=== PATIENT | female | born 1965 | race Caucasian/White ===

== ENCOUNTER 2018-03-17 14:00 | Observation (INO) ==
--- NOTE | 2018-03-17 14:25 | Emergency Department Note ---
Disposition Clinical Impression: Dizziness, Ataxia, Nausea Disposition: Admitted As Inpatient Condition: Fair Time of Disposition: 21:00 Nausea/Vomiting/Diarrhea HPI - General Chief complaint: ED Nausea/Vomiting/Diarrhea Stated complaint: "nausea,weak" Time Seen by Provider: 03/17/18 14:04 Source: patient Mode of arrival: ambulatory Limitations: no limitations Nursing Notes Reviewed: Yes Vital Signs Reviewed: Yes - History of Present Illness HPI Narrative: 52-year-old female presents to emergency department with complaints of lightheadedness and generalized weakness. She is also having some persistent dizziness that is unchanged with body position or head movement. The patient admits to smoking marijuana for years and quit about 2 weeks ago just prior to the onset of her symptoms. She denies any other illegal drug use. She denies nausea, blood loss. She does have some nausea and abdominal discomfort that she has a difficult time describing, she says it feels upset, like when she is hungry. She denies any sharp localized abdominal pain. She is having daily bowel movements and denies melena or bloody stools. She denies focal deficits, no weakness/paresthesias in extremities or elsewhere. - Related Data Home Medications Medication Instructions Recorded Confirmed Divalproex (24 HR) [Depakote ER 1,000 mg PO BID 03/17/18 03/17/18 (24 HR)] Escitalopram [Lexapro] 20 mg PO DAILY 03/17/18 03/17/18 lamoTRIgine [Lamictal] 100 mg PO BID 03/17/18 03/17/18 rOPINIRole [Requip] 3 mg PO HS 03/17/18 03/17/18 Allergies Allergy/AdvReac Type Severity Reaction Status Date / Time No Known Allergies Allergy Verified 02/03/18 14:41 Constitutional: Denies: fever, chills, weakness, weight change Eyes: Denies: eye pain, eye discharge, vision change ENT ED: Denies: ear pain, throat pain, dental pain, hearing loss, epistaxis, congestion, dysphagia Cardiovascular: Denies: chest pain, palpitations, dyspnea on exertion, edema Respiratory: Denies: cough, dyspnea, wheezes, hemoptysis, stridor Gastrointestinal: Reports: nausea. Denies: vomiting, diarrhea, constipation, hematemesis, melena, hematochezia Genitourinary: Denies: dysuria, frequency, hematuria, discharge Integumentary: Denies: rash, abrasion, lesions Neurological: Reports: headache, abnormal gait. Denies: numbness, paresthesias , confusion Endocrine: Denies: heat or cold intolerance, polydipsia, polyuria Past Medical History - Past Medical History Medical history: Reports: arthritis, seizures Psychiatric history: Reports: depression - Social History Smoking Status: Current every day smoker Smokeless Tobacco Status: No Alcohol use: Reports: none Drug use: Reports: none Physical Exam - General Limitations: no limitations General appearance: alert, in no apparent distress - Head Head exam: atraumatic, normocephalic, normal inspection - Eye Eye exam: Present: normal appearance, PERRL, EOMI - ENT ENT exam: normal exam, normal oropharynx, mucous membranes moist - Neck Neck exam: Present: normal inspection, full ROM, trachea midline - Chest Chest inspection: Present: normal inspection, symmetric chest wall rise - Respiratory Respiratory exam: Present: normal lung sounds bilaterally - Cardiovascular Cardiovascular exam: Present: regular rate, normal rhythm, normal heart sounds - Abdominal Exam Abdominal exam: Present: soft, tenderness (mild tenderness to palpation LUQ), normal bowel sounds. Absent: distention, guarding, rebound, rigidity - Extremities Exam Extremities exam: Present: normal inspection, full ROM. Absent: tenderness, pedal edema - Neurological Exam Neurological exam: Present: alert, oriented X3 Course Course Narrative: Patient seen and examined at bedside as she is in no acute distress. - Reevaluation(s) Reevaluation #1: Patient reevaluated following administration of meclizine, Zofran, Ativan and her dizziness is unchanged. She is stable and in no acute distress Time: 15:24 Vital Signs Temperature 98.1 F 03/17/18 14:01 Pulse Rate 100 03/17/18 14:01 Respiratory Rate 18 03/17/18 14:01 Blood Pressure 133/82 03/17/18 14:01 O2 Sat by Pulse Oximetry 97 03/17/18 14:01 Temperature 98.0 F 03/17/18 21:13 Pulse Rate 61 03/17/18 21:13 Respiratory Rate 16 03/17/18 21:13 Blood Pressure 115/79 03/17/18 21:13 O2 Sat by Pulse Oximetry 97 03/17/18 21:13 Oxygen Delivery Oxygen Delivery Room Air Nausea/Vomiting/Diarrhea - MDM Narrative Medical decision making narrative: Discussed case with attending physician. Unusual story with no definite underlying cause for her persistent dizziness and nausea. We will get a CT scan of her head and also check CBC for possible anemia and other hematologic abnormalities, CMP, urinalysis. Will also check urine drug screen for other controlled substances . Urinalysis came back with leukocyte esterase and nitrites as well as moderate blood. Patient denies any recent symptoms of UTI including urgency, frequency, hematuria, dysuria, flank pain, fever/chills. . Consults with neurology Dr. Maki, who says we could consider CTA head to check patient's posterior circulation. He thinks this is possibly related to her recent cessation of marijuana. We will get the CTA. Also discussed case with painter helper Dr. Bajwa who thinks sx less likely explained by marijuana alone . CTA head and neck normal. Discussed case with attending ER physician and we feel that given her persistent ataxia and dizziness with no clear etiology, she would benefit from observation and further evaluation in the hospital. Discussed case with Dr. Garay who will accept the patient - Lab Data Lab results reviewed: Yes I reviewed the patient's lab results. Result diagrams: 03/17/18 14:42 03/17/18 14:42 Lab Results 03/17/18 03/17/18 03/17/18 Range/Units 14:42 14:42 14:57 WBC 6.2 (4.3-11.1) K/mcL RBC 4.07 (3.82-4.97) M/mcL Hgb 13.5 (11.5-15.4) g/dL Hct 39.3 (35.3-44.9) % MCV 96.6 (83.0-100.0) fL MCH 33.2 (28.0-33.3) pg MCHC 34.4 (31.6-35.5) g/dL RDW 14.6 H (11.5-14.5) % Plt Count 183 (140-400) K/mcL MPV 11.0 (9.4-12.4) fL Immature Gran % 0.2 (0-4) % Seg Neutrophils % 47.1 % Lymphocytes % 41.0 % Monocytes % 10.7 % Eosinophils % 0.3 % Basophils % 0.7 % Neutrophils # 2.9 (1.6-8.9) K/mcL Lymphocytes # 2.5 (0.6-4.6) K/mcL Monocytes # 0.7 (0.0-1.3) K/mcL Eosinophils # 0.0 (0.0-0.6) K/mcL Basophils # 0.0 (0.0-0.2) K/mcL Sodium 137 (136-145) mEq/L Potassium 4.2 (3.5-5.1) mEq/L Chloride 105 (98-107) mEq/L Carbon Dioxide 25 (23-29) mEq/L BUN 15 (6-20) mg/dL Creatinine 0.87 (0.60-1.20) mg/dL Est GFR ( Amer) > 60 (> 60) Est GFR (Non-Af Amer) > 60 (> 60) BUN/Creatinine Ratio 17 (6-26) Glucose 89 (70-105) mg/dL Calculated Osmolality 284 (280-300) Calcium 9.1 (8.6-10.3) mg/dL Total Bilirubin 0.3 (0.3-1.0) mg/dL AST 15 (13-39) Units/L ALT 10 (7-52) Units/L Alkaline Phosphatase 55 (34-104) Units/L Serum Total Protein 6.4 (6.4-8.9) g/dL Albumin 3.8 (3.5-5.7) g/dL Globulin 2.6 (2.4-3.5) g/dL Albumin/Globulin Ratio 1.5 (1.1-2.2) Urine Color (Yellow) Urine Clarity (Clear) Urine pH (5.0-8.0) pH Units Ur Specific Baker (1.010-1.025) Urine Protein (Neg-Trace) mg/dL Urine Glucose (UA) (Normal) mg/dL Urine Ketones (Negative) mg/dL Urine Blood (Negative) Urine Nitrite (Negative) Urine Bilirubin (Negative) Urine Urobilinogen (Normal) mg/dL Ur Leukocyte Esterase (Negative) Urine Opiates Screen Negative (Hyoqhq=377) ng/mL Ur Barbiturates Screen Negative (Mmjlga=200) ng/mL Ur Phencyclidine Scrn Negative (Cutoff=25) ng/mL Ur Amphetamines Screen Negative (Hocddx=3630) ng/mL U Benzodiazepines Scrn Negative (Ejxqgu=185) ng/mL Urine Cocaine Screen Negative (Cutoff= 300) ng/mL U Marijuana (THC) Screen Positive H (Cutoff = 50) ng/mL 03/17/18 Range/Units 14:57 WBC (4.3-11.1) K/mcL RBC (3.82-4.97) M/mcL Hgb (11.5-15.4) g/dL Hct (35.3-44.9) % MCV (83.0-100.0) fL MCH (28.0-33.3) pg MCHC (31.6-35.5) g/dL RDW (11.5-14.5) % Plt Count (140-400) K/mcL MPV (9.4-12.4) fL Immature Gran % (0-4) % Seg Neutrophils % % Lymphocytes % % Monocytes % % Eosinophils % % Basophils % % Neutrophils # (1.6-8.9) K/mcL Lymphocytes # (0.6-4.6) K/mcL Monocytes # (0.0-1.3) K/mcL Eosinophils # (0.0-0.6) K/mcL Basophils # (0.0-0.2) K/mcL Sodium (136-145) mEq/L Potassium (3.5-5.1) mEq/L Chloride (98-107) mEq/L Carbon Dioxide (23-29) mEq/L BUN (6-20) mg/dL Creatinine (0.60-1.20) mg/dL Est GFR ( Amer) (> 60) Est GFR (Non-Af Amer) (> 60) BUN/Creatinine Ratio (6-26) Glucose (70-105) mg/dL Calculated Osmolality (280-300) Calcium (8.6-10.3) mg/dL Total Bilirubin (0.3-1.0) mg/dL AST (13-39) Units/L ALT (7-52) Units/L Alkaline Phosphatase (34-104) Units/L Serum Total Protein (6.4-8.9) g/dL Albumin (3.5-5.7) g/dL Globulin (2.4-3.5) g/dL Albumin/Globulin Ratio (1.1-2.2) Urine Color Yellow (Yellow) Urine Clarity Cloudy A (Clear) Urine pH 6.0 (5.0-8.0) pH Units Ur Specific Baker 1.019 (1.010-1.025) Urine Protein Negative (Neg-Trace) mg/dL Urine Glucose (UA) Normal (Normal) mg/dL Urine Ketones 40 H (Negative) mg/dL Urine Blood Moderate H (Negative) Urine Nitrite Positive A (Negative) Urine Bilirubin Negative (Negative) Urine Urobilinogen Normal (Normal) mg/dL Ur Leukocyte Esterase Trace H (Negative) Urine Opiates Screen (Okktir=934) ng/mL Ur Barbiturates Screen (Sunaqb=509) ng/mL Ur Phencyclidine Scrn (Cutoff=25) ng/mL Ur Amphetamines Screen (Kljuuf=4988) ng/mL U Benzodiazepines Scrn (Sgjmfy=883) ng/mL Urine Cocaine Screen (Cutoff= 300) ng/mL U Marijuana (THC) Screen (Cutoff = 50) ng/mL - EKG Data EKG attestation: Yes I reviewed and interpreted this EKG. EKG results narrative: EKG reviewed: Normal sinus rhythm, rate 65 bpm, MT interval 142, QRS duration 90 ms, QT 405 ms, QTC 417 ms, normal axes, no ST elevation or depression Attestation Statement - Attestation Attestation: I, Mahad Caraballo DO, examined this patient [id number] and my medical decision-making was reviewed with Jad Hernandez PGY-3, Resident Physician. I agree with the documented findings, disposition and treatment plan as described except to the extent set forth below. Please see my progress notes for details.
[2018-03-17] MEDS ORDERED: 0.9 % Sodium Chloride 1,000 ML IVC ONE ×2 (14:37→17:07)
[2018-03-17 15:06] LABS: Basophils % 0.7 %; Eosinophils % 0.3 %; Hematocrit 39.3 % (35.3-44.9); Hemoglobin 13.5 g/dL (11.5-15.4); Immature Granulocytes % 0.2 % (0-4); Lymphocytes # 2.5 K/mcL (0.6-4.6); Mean Corpuscular HGB Conc 34.4 g/dL (31.6-35.5); Mean Corpuscular Hemoglobin 33.2 pg (28.0-33.3); Mean Corpuscular Volume 96.6 fL (83.0-100.0); Monocytes # 0.7 K/mcL (0.0-1.3); Monocytes % 10.7 %; Neutrophils # 2.9 K/mcL (1.6-8.9); Platelet Count 183 K/mcL (140-400); Red Blood Count 4.07 M/mcL (3.82-4.97); Red Cell Distribution Width 14.6 % (11.5-14.5); Segmented Neutrophils % 47.1 %
[2018-03-17 15:16] LABS: Bilirubin,Urine Negative (Negative); Blood,Urine Moderate (Negative); Clarity,Urine Cloudy (Clear); Color,Urine Yellow (Yellow); Glucose,Urine (UA) Normal (Normal); Ketones,Urine 40 mg/dL (Negative); Leukocyte Esterase,Urine Trace (Negative); Nitrite,Urine Positive (Negative); Protein,Urine Negative (Neg-Trace); Specific Gravity,Urine 1.019 (1.010-1.025); Urobilinogen,Urine Normal (Normal)
[2018-03-17 15:16] LABS: Alanine Aminotransferase 10 Units/L (7-52); Albumin 3.8 g/dL (3.5-5.7); Albumin/Globulin Ratio 1.5 (1.1-2.2); Alkaline Phosphatase 55 Units/L (34-104); Aspartate Amino Transferase 15 Units/L (13-39); BUN/Creatinine Ratio 17 (6-26); Bilirubin,Total 0.3 mg/dL (0.3-1.0); Blood Urea Nitrogen 15 mg/dL (6-20); Calcium 9.1 mg/dL (8.6-10.3); Carbon Dioxide 25 mEq/L (23-29); Chloride 105 mEq/L (98-107); Globulin 2.6 g/dL (2.4-3.5); Glucose 89 mg/dL (70-105); Osmolality,Calculated 284 (280-300); Potassium 4.2 mEq/L (3.5-5.1); Sodium 137 mEq/L (136-145); Total Protein 6.4 g/dL (6.4-8.9); eGFR For African Americans > 60 (> 60); eGFR For Non-African Americans > 60 (> 60)
[2018-03-17 15:34] LABS: Amphetamine Screen,Urine Negative ng/mL (Cutoff=1000); Barbiturate Screen,Urine Negative ng/mL (Cutoff=200); Benzodiazepines Screen,Urine Negative ng/mL (Cutoff=200); Cannabinoid Screen,Urine Positive ng/mL (Cutoff = 50); Cocaine Screen,Urine Negative ng/mL (Cutoff= 300); Opiate Screen,Urine Negative ng/mL (Cutoff=300); Phencyclidine Screen,Urine Negative ng/mL (Cutoff=25)
[2018-03-17] MEDS ORDERED: Ondansetron 4 MG/2 ML VIAL IVP ONE ×2 (15:35→17:07)
--- NOTE | 2018-03-17 16:46 | Emergency Department Note ---
Disposition Clinical Impression: Dizziness, Ataxia, Nausea Disposition: Admitted As Inpatient Condition: Fair Referrals: Emile Long MD [Primary Care Provider] - Time of Disposition: 19:41 General Adult HPI - General Chief complaint: ED Nausea/Vomiting/Diarrhea Stated complaint: "nausea,weak" Time Seen by Provider: 03/17/18 14:04 Source: patient Mode of arrival: ambulatory Limitations: no limitations - History of Present Illness Pain Scale: 0 - Related Data Allergies Allergy/AdvReac Type Severity Reaction Status Date / Time No Known Allergies Allergy Verified 02/03/18 14:41 Past Medical History - Past Medical History Medical history: Reports: arthritis, seizures Psychiatric history: Reports: depression - Social History Smoking Status: Current every day smoker Smokeless Tobacco Status: No Alcohol use: Reports: none Drug use: Reports: none Physical Exam - General Limitations: no limitations General appearance: alert, in no apparent distress Course Vital Signs Temperature 98.1 F 03/17/18 14:01 Pulse Rate 100 03/17/18 14:01 Respiratory Rate 18 03/17/18 14:01 Blood Pressure 133/82 03/17/18 14:01 O2 Sat by Pulse Oximetry 97 03/17/18 14:01 Temperature 98.1 F 03/17/18 14:20 Pulse Rate 62 03/17/18 16:05 Respiratory Rate 11 03/17/18 18:38 Blood Pressure 129/80 03/17/18 18:38 O2 Sat by Pulse Oximetry 100 03/17/18 18:38 Oxygen Delivery Oxygen Delivery Room Air Medical Decision Making - Lab Data Result diagrams: 03/17/18 14:42 03/17/18 14:42 Lab Results 03/17/18 03/17/18 03/17/18 Range/Units 14:42 14:42 14:57 WBC 6.2 (4.3-11.1) K/mcL RBC 4.07 (3.82-4.97) M/mcL Hgb 13.5 (11.5-15.4) g/dL Hct 39.3 (35.3-44.9) % MCV 96.6 (83.0-100.0) fL MCH 33.2 (28.0-33.3) pg MCHC 34.4 (31.6-35.5) g/dL RDW 14.6 H (11.5-14.5) % Plt Count 183 (140-400) K/mcL MPV 11.0 (9.4-12.4) fL Immature Gran % 0.2 (0-4) % Seg Neutrophils % 47.1 % Lymphocytes % 41.0 % Monocytes % 10.7 % Eosinophils % 0.3 % Basophils % 0.7 % Neutrophils # 2.9 (1.6-8.9) K/mcL Lymphocytes # 2.5 (0.6-4.6) K/mcL Monocytes # 0.7 (0.0-1.3) K/mcL Eosinophils # 0.0 (0.0-0.6) K/mcL Basophils # 0.0 (0.0-0.2) K/mcL Sodium 137 (136-145) mEq/L Potassium 4.2 (3.5-5.1) mEq/L Chloride 105 (98-107) mEq/L Carbon Dioxide 25 (23-29) mEq/L BUN 15 (6-20) mg/dL Creatinine 0.87 (0.60-1.20) mg/dL Est GFR ( Amer) > 60 (> 60) Est GFR (Non-Af Amer) > 60 (> 60) BUN/Creatinine Ratio 17 (6-26) Glucose 89 (70-105) mg/dL Calculated Osmolality 284 (280-300) Calcium 9.1 (8.6-10.3) mg/dL Total Bilirubin 0.3 (0.3-1.0) mg/dL AST 15 (13-39) Units/L ALT 10 (7-52) Units/L Alkaline Phosphatase 55 (34-104) Units/L Serum Total Protein 6.4 (6.4-8.9) g/dL Albumin 3.8 (3.5-5.7) g/dL Globulin 2.6 (2.4-3.5) g/dL Albumin/Globulin Ratio 1.5 (1.1-2.2) Urine Color (Yellow) Urine Clarity (Clear) Urine pH (5.0-8.0) pH Units Ur Specific Wanda (1.010-1.025) Urine Protein (Neg-Trace) mg/dL Urine Glucose (UA) (Normal) mg/dL Urine Ketones (Negative) mg/dL Urine Blood (Negative) Urine Nitrite (Negative) Urine Bilirubin (Negative) Urine Urobilinogen (Normal) mg/dL Ur Leukocyte Esterase (Negative) Urine Opiates Screen Negative (Muhxss=664) ng/mL Ur Barbiturates Screen Negative (Xokqzk=841) ng/mL Ur Phencyclidine Scrn Negative (Cutoff=25) ng/mL Ur Amphetamines Screen Negative (Rbguem=9144) ng/mL U Benzodiazepines Scrn Negative (Fmbsfo=410) ng/mL Urine Cocaine Screen Negative (Cutoff= 300) ng/mL U Marijuana (THC) Screen Positive H (Cutoff = 50) ng/mL 03/17/18 Range/Units 14:57 WBC (4.3-11.1) K/mcL RBC (3.82-4.97) M/mcL Hgb (11.5-15.4) g/dL Hct (35.3-44.9) % MCV (83.0-100.0) fL MCH (28.0-33.3) pg MCHC (31.6-35.5) g/dL RDW (11.5-14.5) % Plt Count (140-400) K/mcL MPV (9.4-12.4) fL Immature Gran % (0-4) % Seg Neutrophils % % Lymphocytes % % Monocytes % % Eosinophils % % Basophils % % Neutrophils # (1.6-8.9) K/mcL Lymphocytes # (0.6-4.6) K/mcL Monocytes # (0.0-1.3) K/mcL Eosinophils # (0.0-0.6) K/mcL Basophils # (0.0-0.2) K/mcL Sodium (136-145) mEq/L Potassium (3.5-5.1) mEq/L Chloride (98-107) mEq/L Carbon Dioxide (23-29) mEq/L BUN (6-20) mg/dL Creatinine (0.60-1.20) mg/dL Est GFR ( Amer) (> 60) Est GFR (Non-Af Amer) (> 60) BUN/Creatinine Ratio (6-26) Glucose (70-105) mg/dL Calculated Osmolality (280-300) Calcium (8.6-10.3) mg/dL Total Bilirubin (0.3-1.0) mg/dL AST (13-39) Units/L ALT (7-52) Units/L Alkaline Phosphatase (34-104) Units/L Serum Total Protein (6.4-8.9) g/dL Albumin (3.5-5.7) g/dL Globulin (2.4-3.5) g/dL Albumin/Globulin Ratio (1.1-2.2) Urine Color Yellow (Yellow) Urine Clarity Cloudy A (Clear) Urine pH 6.0 (5.0-8.0) pH Units Ur Specific Wanda 1.019 (1.010-1.025) Urine Protein Negative (Neg-Trace) mg/dL Urine Glucose (UA) Normal (Normal) mg/dL Urine Ketones 40 H (Negative) mg/dL Urine Blood Moderate H (Negative) Urine Nitrite Positive A (Negative) Urine Bilirubin Negative (Negative) Urine Urobilinogen Normal (Normal) mg/dL Ur Leukocyte Esterase Trace H (Negative) Urine Opiates Screen (Gdsmth=687) ng/mL Ur Barbiturates Screen (Wshkxb=539) ng/mL Ur Phencyclidine Scrn (Cutoff=25) ng/mL Ur Amphetamines Screen (Mecivc=9539) ng/mL U Benzodiazepines Scrn (Ornhtg=904) ng/mL Urine Cocaine Screen (Cutoff= 300) ng/mL U Marijuana (THC) Screen (Cutoff = 50) ng/mL Attestation Statement - Attestation Attestation: I, Mahad Caraballo DO, examined this patient [id number] and my medical decision-making was reviewed with Jad Hernandez PGY-3, Resident Physician. I agree with the documented findings, disposition and treatment plan as described except to the extent set forth below. Please see my progress notes for details. 52-year-old female presents to the emergency room for evaluation of dizziness with nausea and vomiting. Patient said the symptoms now for the last 2 weeks. He notices symptoms after she stopped smoking marijuana every day. Patient denies any trauma or injuries fevers chills chest pain shortness of breath headache or vision change. Denies any vomiting or diarrhea. Patient does have persistent nausea. Currently denies any new medications or other medical issues at this time. Vital signs are reviewed and are stable. Patient is alert she is oriented she speaks in full sentences. Patient does not have any acute signs trauma or injury to the scalp or skull. She has no signs of visualize nystagmus or extraocular muscle deficit. Pupils are equal round reactive oropharynx is patent trachea is midline mucous members are moist heart is regular lungs are clear abdomen is soft. Resting in the bed the patient does not have any visible ataxia or asymmetry evaluation of the extremities. She has normal sensation in the upper and lower extremities at this time. Detailed neurologic evaluation to be completed. CT imaging of the head chest x- ray CBC chemistry troponin EKG and labs including electrolytes urinalysis and urine drug screen will be added. Fluid resuscitation will be started. Meclizine will be given for the dizziness as well as nausea medication this time. Disposition will be determined to full workup treatment course and evaluation are established and resulted. Patient's physical exam is otherwise showing no significant acute pathology this point outside of the patient's difficulty with walking secondary to the dizziness. Patient's symptoms have been present for greater than 24 hours and do not meet criteria for stroke evaluation this point. Patient's symptoms do appear to have a positional aspect to them considering a retention moves from lying to sitting and sitting to standing she gets acutely dizzy. She also has issues with feeling like the room is spinning when she stands up and walks. No history of vertigo, labyrinthitis, Meniere's disease. She has no tenderness or signs of external auditory canal obstruction or infection. Patient is otherwise clinically stable this point despite having symptomatic presentation with dizziness. See detailed documentation of physical exam, medical intervention, medical decision- making and disposition in the resident physician's note. No critical care pad the patient's treatment course at this time. 1600 Repeat evaluation completed at the bedside. Patient still has positional dizziness. Patient felt very unsteady when walking. She does not have any central signs of vertigo at this point. She has fatigable nystagmus that is worse going to the right and left. She does not have any focal cerebellar function deficits or issues when doing an evaluation of her upper and lower extremities. She has resolution of the symptoms when she closes her eyes and takes out the aspect of visual acuity. Patient does have bilateral blurry vision. There is no double vision or diplopia noted on exam according to her. 1750 Neurology was consult. Lengthy discussion was had with him at this time. They felt this does not appear to be consistent or concerning for stroke. The symptoms are more consistent with BPPV. Patient will have CT angiography of the head neck completed for definitive rule out and the most likely be discharged home. The dizziness is now resolving after the Ativan was given. Patient most likely has some aspect of the vestibular related irritation at this time. 1935 Patient has had no significant change in the symptoms here at this time. CT angiography of the head and neck are unremarkable. Because the patient has persistent symptoms with unknown etiology admission process will be completed for MRIs and further evaluation. Patient is otherwise clinically stable and has not had any issues with emesis here in the emergency room.
[2018-03-17] MEDS ORDERED: Isovue-370 500 ML INFUS..BTL IV ONE ×2 (17:15→17:28)
[2018-03-17] MEDS ORDERED: *HR* LORazepam 2 MG/ML VIAL IVP ONE (17:22)
[2018-03-18] MEDS ORDERED: Naloxone 0.4 MG/ML INJ IVP PRN (00:18)
[2018-03-18] MEDS ORDERED: Acetaminophen 325 MG TABLET PO PRN (00:18)
[2018-03-18] MEDS ORDERED: 0.9 % Sodium Chloride 1,000 ML IVC SCH (00:30)
[2018-03-18] MEDS: Divalproex (24 HR) 500 MG TABLET PO SCH ×2 (00:57→08:18)
[2018-03-18] MEDS: cefTRIAXone 1,000 MG in Water for inj. (sterile) 20 ML 10 ML IVP SCH ×2 (00:58→08:18)
[2018-03-18] MEDS: lamoTRIgine 100 MG TABLET PO SCH ×2 (00:58→08:18)
--- NOTE | 2018-03-18 02:18 | Internal Med History&Physical ---
Date of Encounter: 03/18/18 Time of Encounter: 00:10 Internal Medicine - H&P: HPI Chief complaint: dizzy spells, ataxia Admitted From: Emergency Dept Plans for Post Hospital Care: Home History of present illness: Ms. Michael is a 52 year old female [facility] complaints of dizziness, ataxia, and near-syncope. Symptoms started several days ago but progressively worsened to the point where she almost had a syncopal spell today. She therefore went to the ER where she initially had work -up for possible stroke. Workup was negative but consultation was made with neurology who recommended CTA of the head and neck and admission for close observation and workup. Of note, patient recently stopped using marijuana abruptly. She had been using it chronically for years and then stopped abruptly a few weeks ago. Neurology felt that symptoms were likely due to abrupt cessation/withdrawal from marijuana, but that neurologic workup was indicated. Upon my assessment of the patient, she feels back to baseline but she does complain of dizziness and ataxia when standing and moving. She denies any other focal deficits. She has had some nausea but no vomiting or diarrhea. She denies any dysarthria, choking, gagging, focal numbness or weakness, or vision changes. However, upon standing and trying to walk, she is unsteady, ataxic, and bracing herself. Past Med Surg Social Fam HX - Past Medical History Attestation: Yes The following information was validated with the patient. Source: patient, old records reviewed Medical history: arthritis, seizures Additional medical history: RLS, depression Psychiatric history: depression - Past Surgical History Surgical History: orthopedic, other Additional surgical history: knee - Social History Smoking Status: Current every day smoker Packs per day: 1 Smokeless Tobacco Status: No Alcohol use: none Drug use: marijuana (recently stopped abruptly) Current living situation: Home Activity Level: Independent ambulation Recent Out of Country Travel Within the Last 8 Weeks: No - Family History Mother Hx Family Cancer: Yes (breast cancer) Internal Medicine - H&P: Meds Divalproex (24 HR) [Depakote ER (24 HR)] 1,000 mg PO BID 03/17/18 [History] Escitalopram [Lexapro] 20 mg PO DAILY 03/17/18 [History] lamoTRIgine [Lamictal] 100 mg PO BID 03/17/18 [History] rOPINIRole [Requip] 3 mg PO HS 03/17/18 [History] 3 Allergy/AdvReac Type Severity Reaction Status Date / Time No Known Allergies Allergy Verified 02/03/18 14:41 - Constitutional Constitutional: no chills, no fever(s), no night sweats - EENT Eyes: no blurry vision, no change in vision Ears: no ear pain, no tinnitus Nose, mouth and throat: no nasal congestion, no sore throat - Cardiovascular Cardiovascular ROS IM: other (+near syncope), no chest pain, no diaphoresis, no dyspnea, no lightheadedness, no palpitations, no paroxysmal nocturnal dyspnea, no syncope - Respiratory Respiratory: no cough, no dyspnea, no hemoptysis - Gastrointestinal Gastrointestinal: nausea, no abdominal pain, no diarrhea, no hematemesis, no hematochezia, no melena, no vomiting - Genitourinary Genitourinary: no dysuria, no flank pain, no hematuria - Musculoskeletal Musculoskeletal ROS IM: no arthralgias, no back pain - Integumentary Integumentary IM: no rash, no jaundice - Neurological Neurological ROS: abnormal gait, dizziness, restless legs, no focal weakness, no frequent falls, no headache(s) - Psychiatric Psychiatric: no anxiety, no depression - Endocrine Endocrine IM: no polydipsia, no polyuria - Allergic/Immunologic Allergic/Immunologic: no wheezing, no GI upset with certain foods - Constitutional Vitals: Temp Pulse Resp BP Pulse Ox 97.7 F 70 13 132/81 95 03/17/18 23:56 03/17/18 23:56 03/17/18 23:56 03/17/18 23:56 03/17/18 23:56 General appearance: Present: cooperative, A&O X 3, pleasant, no acute distress, answers questions appropriately - Head Head exam: Present: atraumatic, normal inspection - Eye Eye exam: Present: EOMI, normal appearance, PERRL. Absent: scleral icterus Pupils: Present: normal accommodation - ENT ENT exam: Present: mucous membranes dry, normal exam, normal oropharynx - Neck Neck exam general surgery: Present: full ROM, supple. Absent: tenderness, nuchal rigidity, thyromegaly - Expanded Neck Exam Neck exam: Absent: carotid bruit - Respiratory Respiratory exam: Present: CTAB. Absent: chest wall tenderness, rales, respiratory distress, rhonchi, wheezes - Cardiovascular Cardiovascular exam: Present: RRR, +S1, +S2. Absent: diastolic murmur, systolic murmur - GI/Abdominal GI/Abdominal exam: Present: normal bowel sounds, soft. Absent: hepatomegaly, mass, splenomegaly, tenderness - Extremities Exam Extremities exam: Present: full ROM, warm, radial pulses palpable and symmetrical. Absent: calf tenderness, pedal edema - Back Exam Back exam: Present: normal inspection. Absent: CVA tenderness (L), CVA tenderness (R) - Neurological Exam Neurological exam: Present: abnormal gait (ataxic), alert, CN II-XII intact, oriented X3, reflexes normal, no focal deficits, strengths equal and symetr throughout - Psychiatric Psychiatric exam: Present: normal affect, normal mood - Skin Skin exam: Present: dry, warm. Absent: rash Internal Med - H&P Results - Labs CBC & Chem 7: 03/17/18 14:42 03/17/18 14:42 - EKG Data -: EKG Interpreted by Myself EKG shows normal: sinus rhythm - EKG Data Prior EKG available for review: no EKG comments: 03/18/18 02:27 NSR; no acute changes - Diagnostic Studies Chest x-ray Status: image reviewed by me (negative) CT scan - head Additional comments: CTA Head and Neck report reviewed -- negative - Assessment and plan (1) Dizziness Current Visit: Yes Status: Acute Assessment and plan: 1. Associated with some ataxia. 2. Will proceed with stroke work-up including ECHO, Carotid Dopplers, and MRI brain. 3. Neurology consulted through ER. (2) Near syncope Current Visit: Yes Status: Acute Assessment and plan: 1. Likely due to ataxia and dizziness. 2. Will monitor on telemetry, 3. ECHO, Carotid Dopplers, and MRI as above. (3) Seizure disorder Current Visit: Yes Status: Chronic Assessment and plan: 1. Continue home meds and seizure precautions. (4) DVT prophylaxis Current Visit: Yes Status: Acute Assessment and plan: 1. Heparin SQ.
[2018-03-18 05:36] LABS: INR 1.1; Prothrombin Time 11.7 Seconds (9.4-12.1)
[2018-03-18 05:39] LABS: Activated Partial Thrombo Time 40.8 Seconds (26.0-36.0); Basophils % 0.3 %; Eosinophils # 0.1 K/mcL (0.0-0.6); Eosinophils % 1.3 %; Hematocrit 36.5 % (35.3-44.9); Immature Granulocytes % 0.3 % (0-4); Lymphocytes # 2.8 K/mcL (0.6-4.6); Lymphocytes % 46.5 %; Mean Corpuscular HGB Conc 32.9 g/dL (31.6-35.5); Mean Corpuscular Hemoglobin 31.7 pg (28.0-33.3); Mean Corpuscular Volume 96.6 fL (83.0-100.0); Mean Platelet Volume 11.1 fL (9.4-12.4); Monocytes # 0.6 K/mcL (0.0-1.3); Monocytes % 9.7 %; Neutrophils # 2.6 K/mcL (1.6-8.9); Platelet Count 162 K/mcL (140-400); Red Blood Count 3.78 M/mcL (3.82-4.97); Red Cell Distribution Width 14.7 % (11.5-14.5); Segmented Neutrophils % 41.9 %
[2018-03-18 05:48] LABS: Alanine Aminotransferase 9 Units/L (7-52); Albumin 3.3 g/dL (3.5-5.7); Albumin/Globulin Ratio 1.4 (1.1-2.2); Alkaline Phosphatase 46 Units/L (34-104); Aspartate Amino Transferase 13 Units/L (13-39); BUN/Creatinine Ratio 16 (6-26); Bilirubin,Total 0.2 mg/dL (0.3-1.0); Blood Urea Nitrogen 12 mg/dL (6-20); Calcium 8.2 mg/dL (8.6-10.3); Carbon Dioxide 25 mEq/L (23-29); Chloride 107 mEq/L (98-107); Cholesterol 181 mg/dL (< 200); Globulin 2.3 g/dL (2.4-3.5); Glucose 76 mg/dL (70-105); HDL Cholesterol 36 mg/dL (40-59); LDL Cholesterol,Calculated 110 mg/dL (0-99); Magnesium 2.1 mg/dL (1.6-2.6); Osmolality,Calculated 285 (280-300); Potassium 3.5 mEq/L (3.5-5.1); Sodium 138 mEq/L (136-145); Total Protein 5.6 g/dL (6.4-8.9); Triglycerides 175 mg/dL (< 150); eGFR For African Americans > 60 (> 60); eGFR For Non-African Americans > 60 (> 60)
[2018-03-18] MEDS ORDERED: *HR* Heparin 5,000 UNIT/ML VIAL SQ SCH (06:00)
[2018-03-18] MEDS ORDERED: Aspirin Enteric Coated 81 MG Tablet PO SCH (09:00)
--- NOTE | 2018-03-18 12:58 | Neurology - Consult Note ---
Date of Encounter: 03/18/18 Time of Encounter: 10:45 Assessment and Plan (1) Dizziness Current Visit: Yes Status: Acute This patient was admitted with these nonspecific symptoms of dizziness lightheadedness difficulty with a gait and balance without any focal findings on examination. Patient did acknowledges that she is been on marijuana for long. Of time and about a week ago she stopped using it abruptly. No focal findings on neurological examinations imaging studies been negative for any acute infarct in particularly no evidence of any bleeding or any abnormality in the posterior circulation. CT angiogram of the head and neck was negative for any critical stenosis she did have a slightly decreased left vertebral artery in caliber which is likely an incidental finding. At the moment from neurology standpoint patient is a stable suggest to increase the fluid intake. Symptoms are likely related to abrupt discontinuation of marijuana No clinical sign and symptoms or history be suggestive of stroke or seizure Other workup is as per primary team. (2) History of marijuana use Current Visit: Yes Status: Acute (3) Near syncope Current Visit: Yes Status: Acute History of Present Illness HPI: Ms. Michael is a 52 year old female who presents to the ER with complaints of dizziness, ataxia, and near-syncope. Symptoms started several days ago but progressively worsened to the point where she had this dizzy spells all day. seen in [facility] where she initially had work-up for possible stroke. Workup was negative but consultation was made with neurology who recommended CTA of the head and neck for any posteroir circulation abnormality that was negative. patient recently stopped using marijuana abruptly. She had been using it for years and then stopped abruptly a few weeks ago. . She denies any other focal deficits. She has had some nausea but no vomiting or diarrhea. She denies any dysarthria, choking, gagging, focal numbness or weakness, or vision changes. However, upon standing and trying to walk, she is unsteady, ataxic, and bracing herself. Past Med Surg Social Fam HX - Past Medical History Medical history: arthritis, seizures Additional medical history: RLS, depression Psychiatric history: depression - Past Surgical History Surgical History: orthopedic, other Additional surgical history: knee - Social History Smoking Status: Current every day smoker Packs per day: 1 Smokeless Tobacco Status: No Alcohol use: none Drug use: marijuana (recently stopped abruptly) - Family History Mother Hx Family Cancer: Yes (breast cancer) Medications and Allergies Divalproex (24 HR) [Depakote ER (24 HR)] 1,000 mg PO BID 03/17/18 [History] Escitalopram [Lexapro] 20 mg PO DAILY 03/17/18 [History] lamoTRIgine [Lamictal] 100 mg PO BID 03/17/18 [History] rOPINIRole [Requip] 3 mg PO HS 03/17/18 [History] 3 Allergy/AdvReac Type Severity Reaction Status Date / Time No Known Allergies Allergy Verified 02/03/18 14:41 All Systems: The remainder of the systems were reviewed and are negative Physical Examination - Vital Signs Vital Signs: Initial Vital Signs Temp Pulse Resp BP Pulse Ox 98.1 F 100 18 133/82 97 03/17/18 14:01 03/17/18 14:01 03/17/18 14:01 03/17/18 14:01 03/17/18 14:01 - Exam Exam: GENERAL: Comfortable in no acute distress HEENT: Normal LUNGS: CTA HEART: RRR, S1 S2 Audible, no murmur EXTREMITIES: No Pedal edema. DETAILED NEUROLOGICAL EXAMINATION: MENTAL STATUS: Oriented to person, place, date and situation. Memory: knows the President, Aware of recent events Recent Memory Intact Cranial Nerve Examination: CN - II: Visual Acuity, Field of Vision Normal, Fundus examination: No disk edema, Pupils- size shape reaction to light and accommodation: All normal. CN III, IV, : External ocular movements were intact, Pupils were reactive, Nodrooping of the eyelids CN V: Sensation over the face to light touch and pinprick all normal. Corneal reflexes not tested, jaw jerk normal. CN VII: No facial asymmetry, no flattening of nasolabial folds, no difficulty in closing the eyes, no loss of forehead wrinkles, no difficulty in eye-closure, frowning raising eyebrows. CNVIII: No significant hearing loss CN IX, X: Uvula centralized not deviated, Gag reflex: Not tested CN X1: Sternocleidomastoid, trapezius, normal or evidence of any weakness. CN X11: No Dysarthria, no wasting or fibrilation f tongue muscles, no deviation, tongue muscle strength normal. Motor examination: No hypertrophy, tone was normal, power grade 0-5 Upper limbs Proximal- No difficulty in lifting the arms above the head. Distal- No weakness in distal muscles On formal testing 5/5 all over Lower limbs On formal testing 5/5 all over Coordination: [id number] normal. Target pursuit normal finger tapping normal, Rapid alternating moment of wrist normal Sensory system: Superficial sensations- Touch normal. Pain- Pinprick, Temperature all normal, Deep sensation normal, Joint position sense normal. Cortical sensation, Tactile discrimination, localization and extinction all normal. Deep tendon reflexes. Symmetrical bilateral, No evidence of Babinski. No sign of meningeal irritation Gait Examination: Deferred Results - Laboratory Findings CBC and BMP: 03/18/18 03:38 03/18/18 03:38 Abnormal lab findings: Abnormal lab results RBC 3.78 M/mcL (3.82-4.97) L 03/18/18 03:38 RDW 14.7 % (11.5-14.5) H 03/18/18 03:38 APTT 40.8 Seconds (26.0-36.0) H 03/18/18 03:38 Calcium 8.2 mg/dL (8.6-10.3) L 03/18/18 03:38 Total Bilirubin 0.2 mg/dL (0.3-1.0) L 03/18/18 03:38 Serum Total Protein 5.6 g/dL (6.4-8.9) L 03/18/18 03:38 Albumin 3.3 g/dL (3.5-5.7) L 03/18/18 03:38 Globulin 2.3 g/dL (2.4-3.5) L 03/18/18 03:38 Triglycerides 175 mg/dL (< 150) H 03/18/18 03:38 LDL Cholesterol, Calc 110 mg/dL (0-99) H 03/18/18 03:38 VLDL Cholesterol, Calc 35 mg/dL (< 31) H 03/18/18 03:38 HDL Cholesterol 36 mg/dL (40-59) L 03/18/18 03:38 Cholesterol/HDL Ratio 5.0 (0-4.9) H 03/18/18 03:38 Urine Clarity Cloudy (Clear) A 03/17/18 14:57 Urine Ketones 40 mg/dL (Negative) H 03/17/18 14:57 Urine Blood Moderate (Negative) H 03/17/18 14:57 Urine Nitrite Positive (Negative) A 03/17/18 14:57 Ur Leukocyte Esterase Trace (Negative) H 03/17/18 14:57 U Marijuana (THC) Screen Positive ng/mL (Cutoff = 50) H 03/17/18 14:57 - Diagnostic Findings Additional findings: MRI of the brain negative for any acute infarct Unremarkable CTA of the head and neck. Incidental finding of a diminutive but patent appearing left vertebral artery. Consult Discharge Plan - Plan
--- NOTE | 2018-03-18 13:44 | Discharge Summary ---
Orders not resulted at time of discharge: Pending orders 03/18/18 00:23 Culture,Urine [RM] Stat 03/18/18 02:29 EV carotid duplex imaging BI Routine EV echo with saline Routine 03/18/18 06:00 ECG 12 lead ECG [ECG] AM 0600 Date of Encounter: 03/18/18 Time of Encounter: 13:44 - Discharge Diagnosis (1) Dizziness Priority: Primary Status: Acute (2) Near syncope Priority: Primary Status: Acute (3) Seizure disorder Priority: Primary Status: Chronic Hospital course: Ms. Michael is a 52 year old female with PMH seizure disorder presented to [facility] on 03/17/18 with complaints of dizziness, ataxia, and near-syncope. She was placed in observation status for further work-up and treatment. She was placed in observation status for further work-up and treatment. She underwent a head/ neck CTA angiogram that was negative for any critical stenosis she did have a slightly decreased left vertebral artery in caliber which is likely an incidental finding. Brain MRI negative for acute infarct. She was evaluated by Neurology who thought symptoms were likely related to abrupt discontinuation of marijuana. No clinical sign and symptoms or history be suggestive of stroke or seizure per Neurology. Her sx's resolved and she returned to baseline and requested discharged home. Discharge discussed with: patient - Time Spent with Patient Total time spent providing and/or coordinating discharge services: - Discharge Medications Home Medications: Divalproex (24 HR) [Depakote ER (24 HR)] 1,000 mg PO BID 03/17/18 [History] Escitalopram [Lexapro] 20 mg PO DAILY 03/17/18 [History] lamoTRIgine [Lamictal] 100 mg PO BID 03/17/18 [History] rOPINIRole [Requip] 3 mg PO HS 03/17/18 [History] Allergies/Adverse Reactions: 3 Allergy/AdvReac Type Severity Reaction Status Date / Time No Known Allergies Allergy Verified 02/03/18 14:41 Date of admission: 03/17/18 20:16 Primary care physician: Emile Long MD Consults: 03/18/18 00:20 Consult to Physician [CONS] Routine Consulting Provider: Tom Maki I Reason for Consult: ataxia, dizzines, near syncope Call Completed: No Discharging clinician: Adamaris J Metcalf Anticipated date of discharge: 03/18/18 - Constitutional Vitals: Temp Pulse Resp BP Pulse Ox 98.2 F 67 18 105/67 97 03/18/18 11:06 03/18/18 11:06 03/18/18 11:06 03/18/18 11:06 03/18/18 11:06 General appearance: Present: cooperative, A&O X 3, morbidly obese, pleasant, no acute distress, answers questions appropriately - Head Head exam: Present: atraumatic, normocephalic - Eye Eye exam: Present: PERRL, conjuntiva pink, sclera anicteric Pupils: Present: PERRL - Neck Neck exam general surgery: Present: supple, trachea midline. Absent: lymphadenopathy - Respiratory Respiratory exam: Present: CTAB. Absent: accessory muscle use, rales, rhonchi, wheezes - Cardiovascular Cardiovascular exam: Present: RRR, +S1, +S2. Absent: diastolic murmur, gallop, rubs, systolic murmur - GI/Abdominal GI/Abdominal exam: Present: normal bowel sounds, soft, no peritoneal signs. Absent: distended, tenderness - Extremities Exam Extremities exam: Present: warm, radial pulses palpable and symmetrical. Absent : calf tenderness, cyanotic, pedal edema - Neurological Exam Neurological exam: Present: CN II-XII intact, oriented X3, no focal deficits. Absent: pronater drift, facial droop, speech deficit - Skin Skin exam: Present: dry, intact - Patient Status Disposition: Home, Self-Care Condition: Good Functional capacity at discharge: independent ambulation Overall status at discharge: patient is back to baseline - Discharge Instructions Instructions: Epilepsy (DC), Medicinal Use of Cannabis (DC) Follow Up With: Emile Long MD [Primary Care Provider] - Forms: ED Satisfaction Letter - Diet and Activity Activity: increase activity as tolerated Diet: advance to your usual diet
[2018-03-18 15:08] VITALS: BP 115/78
--- NOTE | 2018-03-20 09:41 | Electrocardiograph Report ---
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
--- NOTE | 2018-03-21 09:42 | Electrocardiograph Report ---
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
== END 2018-03-18 14:05 | disposition home or self-care (01) ==
LOC: 3BNU 14:00 → EMEROO 14:00 → 3BNU 20:51
PROVIDERS: ADMIT Pediatrics; ATTEND Pediatrics